=== PATIENT | female | born 1995 | race Two or more races ===

== ENCOUNTER 2021-01-26 12:40 | Emergency (ER) | payer OTHER ==
[~2021-01-26] VITALS: Ht 165.1 cm; Wt 54.4 kg
--- NOTE | 2021-01-26 13:18 | NUR ---
BIBS W/ FRIEND FROM HOME TO ER BED 16. AAOX4. NOT IN RESP DISTRESS. AMBULATORY. CAME IN FOR WEAKNESS AND FEELING DISORIENTED STARTED THIS MORNIGN. PER PT, SHE TOOK PILLS YESTERDAY AND SOME EDIBLE MARIJUANA. PT DENIES ANY VAGINAL BLEEDING AT THIS TIME. WAS AT THE BEDSIDE FOR EVAL. ORDERS RECEIVED, NOTD AND CARRIED OUT. IV LINE ESTABLSIHED ON THE R HAND 20G, BLOOD DRAWN BY PHLEB. UNABLE TO UNRINATE AT THIS TIME
[2021-01-26 13:23] LABS: BASOPHILS % (AUTO) 0.6 % (0.0-2.0); EOSINOPHILS % (AUTO) 1.4 % (0.0-6.0); HEMATOCRIT 36 % (33-45); HEMOGLOBIN 12.5 g/dL (11.5-14.8); LYMPHOCYTES # (AUTO) 2.4 K/uL (0.8-4.8); LYMPHOCYTES % (AUTO) 31.1 % (20.0-44.0); MEAN CORPUSCULAR HGB CONC 35 g/dl (31.0-36.0); MEAN CORPUSCULAR VOLUME 96 fL (82-100); MONOCYTES # (AUTO) 0.7 K/uL (0.1-1.30); MONOCYTES % (AUTO) 8.8 % (2.0-12.0); NEUTROPHILS # (AUTO) 4.6 K/uL (1.8-8.9); NEUTROPHILS % (AUTO) 58.1 % (43.0-81.0); PLATELET COUNT (AUTO) 205 K/uL (150-450); RED BLOOD CELL COUNT(AUTO) 3.75 MIL/uL (4.0-5.2); WHITE BLOOD COUNT (AUTO) 7.9 K/uL (4.3-11.0)
[2021-01-26 13:30] LABS: CALCIUM, SERUM 8.1 mg/dL (8.5-10.1); CARBON DIOXIDE 28 mmol/L (21-32); CHLORIDE 103 mmol/L (98-107); CREATININE 0.7 mg/dL (0.6-1.3); GLUCOSE 94 mg/dL (74-106); POTASSIUM 3.4 mmol/L (3.5-5.1); SODIUM SERUM 138 mmol/L (136-145); UREA NITROGEN, BLOOD 4 mg/dL (7-18)
[2021-01-26 13:36] LABS: ALANINE AMINOTRANSFERASE 17 U/L (12-78); ALBUMIN 3.6 g/dL (3.4-5.0); ALCOHOL, BLOOD < 3 mg/dL (0-0); ALKALINE PHOSPHATASE 75 U/L (46-116); ASPARTATE AMINOTRANSFERASE 12 U/L (15-37); BILIRUBIN,TOTAL 0.1 mg/dL (0.2-1.0); TOTAL PROTEIN, SERUM 6.8 g/dL (6.4-8.2)
[2021-01-26] MEDS ORDERED: IV NS 0.9% 1,000 ML BAG IV ONE (14:00)
[2021-01-26 14:46] LABS: BILIRUBIN,URINE Negative (NEGATIVE); COLOR,URINE YELLOW (YELLOW); LEUKOCYTE ESTERASE ,URINE Trace (NEGATIVE); NITRITE, URINE Negative (NEGATIVE); PH,URINE 6.5 (5.0-8.0); PROTEIN,URINE 100 mg/dl (NEGATIVE); UGLUCOSE Negative (NEGATIVE); UROBILINOGEN,URINE 0.2 EU/dL (0.2)
[2021-01-26 14:47] LABS: BACTERIA,URINE Few /HPF (None Seen); RBC,URINE 21-50 /HPF (0-2); SQUAMOUS EPITHELIAL CELL,UR Few /HPF (None Seen)
--- NOTE | 2021-01-26 15:25 | NUR ---
IV removed. Catheter intact and site benign. Pressure and 4x4 applied to site. No bleeding noted.
--- NOTE | 2021-01-26 15:25 | NUR ---
Patient discharged to home in stable condition. Written and verbal after care instructions given. Patient verbalizes understanding of instruction. Pt ambulatory with a steady gait
[2021-01-26 15:26] VITALS: BP 101/65
== END 2021-01-26 15:27 | disposition home or self-care (01) ==
LOC: ER 12:43
DX: R41.82 Altered mental status, unspecified (principal); F12.90 Cannabis use, unspecified, uncomplicated; Z98.890 Other specified postprocedural states
CPT/HCPCS: 36415; 76856; 80048; 80076; 80307; 80320; 81001; 84484; 84702; 85025; 86850; 93005; 96360; 99285; J7030; G0480

== ENCOUNTER 2023-06-09 03:34 | Emergency (ER) | payer OTHER ==
[~2023-06-09] VITALS: Ht 167.6 cm; Wt 54.4 kg
[2023-06-09] MEDS ORDERED: TDAP [DIPH/PERTUSSIS/TET] 0.5 ML VIAL IM ONE (04:29)
[2023-06-09] MEDS: TDAP [DIPH/PERTUSSIS/TET] 0.5 ML VIAL IM ONE (04:33)
[2023-06-09] MEDS: LIDOCAINE HCL/PF 1% 30 ML VIAL TP ONE (04:41)
[2023-06-09] MEDS ORDERED: LIDOCAINE HCL/PF 1% 30 ML SDV ONE (04:41)
[2023-06-09 05:20] VITALS: BP 112/75; TEMP 98.1; O2SAT 100
== END 2023-06-09 05:29 | disposition home or self-care (01) ==
LOC: ER 03:39
DX: S61.217A Laceration without foreign body of left little finger without damage to nail, initial encounter (principal); W25.XXXA Contact with sharp glass, initial encounter; Y93.89 Activity, other specified; Y92.89 Other specified places as the place of occurrence of the external cause; Y99.8 Other external cause status
CPT/HCPCS: 12002; 90471; 90715; 99283; J3490

== ENCOUNTER 2023-06-21 10:34 | Emergency (ER) | payer OTHER ==
[~2023-06-21] VITALS: Ht 167.6 cm; Wt 54.4 kg
[2023-06-21 10:59] VITALS: BP 99/64; TEMP 98.1; O2SAT 97
[2023-06-21] MEDS ORDERED: CLIN300C12 PO (11:14)
== END 2023-06-21 12:08 | disposition home or self-care (01) ==
LOC: ER 10:38
DX: Z48.02 Encounter for removal of sutures (principal); S61.217D Laceration without foreign body of left little finger without damage to nail, subsequent encounter; X58.XXXD Exposure to other specified factors, subsequent encounter